=== PATIENT | male | born 1955 | race Caucasian/White ===

== ENCOUNTER 2022-10-27 06:38 | Emergency (ER) | payer MEDICARE, SELFPAY ==
[2022-10-27 06:46] VITALS: BP 145/87; PULSE 58; RESP 16; TEMP 36.7; O2SAT 96; BMI 29.2
--- NOTE | 2022-10-27 07:08 | CT_ITS ---
WS: [id number] CT HEAD NONCONTRAST HISTORY: new onset headache TECHNIQUE: Contiguous axial imaging performed through the brain in 2.5 mm imaging. Bone and soft tiss ue windows. Sagittal and coronal reformats reviewed. All CT scans at [facility] use at least one of these dose optimization techniques: automated exposure control; mA and/or kV adjustment per pa tient size (includes targeted exams where dose is matched to clinical indication); or iterative recon struction. DLP: 1120.03 mGy.cm COMPARISON: None available. Acute intracranial hemorrhage is identified. There is hemorrhage in the subdural and subarachnoid loc ations. There is a small amount of acute blood layering along the interhemispheric falx and over the tentorium. Subarachnoid blood is noted within the sylvian fissures and basal cisterns bilaterally but greatest on the LEFT. Blood is noted in the ambient and quadrigeminal cisterns. Blood also present i n the interpeduncular cistern. Acute blood noted in the region of the anterior communicating artery a nd basilar tip. No midline shift. No inferior displacement of the cerebellar tonsils. No loss of the gomez-white matte r. Ventricles: Temporal horns are very mildly prominent. No definite intraventricular hemorrhage. Quest ionable for small amount of hemorrhage in the occipital horn of the RIGHT lateral ventricle. Paranasal sinuses: As visualized are clear. Mastoid air cells: Well pneumatized. Calvarium and scalp: Skull is intact with no soft tissue edema or swelling. CT/CT head wo con* [id number] IMPRESSION: 1. Acute intracranial blood, subdural and subarachnoid locations. Suspect rupt ured aneurysm. 2. Diffuse intracranial hemorrhage but more focal in the region of the basilar cisterns, basilar artery tip, LEFT MCA. 3. Mildly prominent temporal horns suggesting early ventricular obstruction. Notified Gopal Langford DO at 10/27/2022 8:03 AM.
[2022-10-27] MEDS: ketorolac 30 mg/mL INJ IVP (07:28)
[2022-10-27] MEDS: promethazine 25 mg/mL SDV 1 mL IM (07:29)
[2022-10-27 07:52] LABS: Basophils % 0.5 %; Eosinophils % 0.1 %; Hematocrit 43.4 % (42.0-52.0); Hemoglobin 14.6 g/dL (11.7-16.6); Lymphocytes # 0.8 10^3/uL (0.8-4.8); Lymphocytes % 8.7 %; Mean Corpuscular HGB Conc 33.6 g/dL (30.0-36.0); Mean Corpuscular Hemoglobin 29.8 pg (28.0-34.0); Mean Corpuscular Volume 88.6 fl (80-94); Mean Platelet Volume 11.1 fL (7.4-10.4); Monocytes # 0.5 10^3/uL (0.2-0.9); Monocytes % 5.5 %; Neutrophils # 7.33 10^3/uL (1.8-7.7); Neutrophils % 85.1 %; Nucleated Red Blood Cells % 0 %; Platelet Count 256 10^3/cmm (130-400); Red Cell Distribution Width 13.1 % (12.1-15.1); White Blood Count 8.6 10^3/uL (4.0-10.0)
[2022-10-27 08:05] LABS: Alanine Aminotransferase 18 U/L (0-41); Albumin Level 4.4 g/dL (3.5-5.2); Alkaline Phosphatase 48 U/L (40-130); Blood Urea Nitrogen 19 mg/dL (8-23); Calcium 9.2 mg/dL (8.5-10.5); Carbon Dioxide 24 mmol/L (22-29); Chloride 101 mmol/L (98-107); Creatinine Clr Calc Pharmacy 102.0109; Glomerular Filtration Rate 113.2 mL/min (90-130); Glucose 123 mg/dL (65-115); Osmolality Calculated 286 mOsm/kg (285-295); Sodium 136 mmol/L (136-145); Total Bilirubin 0.7 mg/dL (0.15-1.2); Total Protein 7.4 g/dL (6.6-8.7)
[2022-10-27 08:08] LABS: Anion Gap 14.5 (5-19); Aspartate Amino Transferase 18 U/L (0-40); Potassium 3.5 mmol/L (3.5-5.1)
--- NOTE | 2022-10-27 08:08 | W.ED.HA ---
HPI - Headache General: Chief Complaint: Headache Stated Complaint: headache Time Seen by Provider: 10/27/22 06:39 Source: patient Mode of arrival: ambulatory History of Present Illness: 67-year-old male presents emergency room with headache for the last 2 days he was lifting some heavy objects suddenly had a sharp shooting pain in the back of his head radiating from the base of his skull up through the top as he describes it. He became very nauseous he is a headache since. He describes it is most profound headache he has ever had he has had some vision changes difficulty focusing and some difficulty with balance. He is tried various medications at home with no relief. MD elicited complaint: headache Onset (ago): day(s) (2) Onset description: suddenly Location: occipital and down into neck Severity: severe Quality & Timing: constant and worst headache of life Exacerbating factors: exertion Relieving factors: nothing Context: occurred with exertion/activity Associated symptoms: Reports lightheadedness, nausea, photophobia and vomiting; Deny chest pain, confusion, cough, diaphoresis, eye pain, eye redness, fever(s), loss of vision, malaise, neck stiffness, numbness, paresthesias, pre-syncope, rash, seizures, short of breath, sound sensitivity, syncope or weakness Treatments prior to arrival: acetaminophen and ibuprofen Review of Systems Const: Denies: fever(s), chills, fatigue, malaise or diaphoresis ENMT: Denies: throat pain, ear or mastoid pain, nasal discharge or nasal congestion Card: Reports: lightheadedness; Denies: chest pain, palpitations, irregular heart rhythm, syncope or pre-syncope Resp: Denies: dyspnea, productive cough or non-productive cough GI: Reports: nausea and vomiting; Denies: abdominal pain : Denies: flank pain, dysuria, urinary frequency or urinary urgency Musc: Reports: neck pain Skin/Breast: Denies: rash Neuro: Reports: headache(s); Denies: confusion Physical Exam Const: GENERAL APPEARANCE: cooperative and comfortable ORIENTATION/CONSCIOUSNESS: Yes awake, Yes oriented to person, Yes oriented to place and Yes oriented to time HENMT: COMMON NORMALS: normocephalic, atraumatic, hearing grossly normal bilaterally, external ears normal, EAC's normal, TM's normal bilaterally, Normal nasal mucous membranes and turbinates present, moist oral mucous membranes and oropharynx normal HEAD & SCALP: normocephalic and atraumatic NOSE: Normal nasal mucous membranes and turbinates present EXTERNAL EAR: Yes external ears normal EXTERNAL AUDITORY CANAL: EAC's normal TYMPANIC MEMBRANE: TM's normal bilaterally Eye: COMMON NORMALS: Equal, round and reactive pupils present, EOMs intact bilaterally, conjunctivae normal and no scleral icterus CONJUNCTIVA: Yes conjunctivae normal PUPIL: Yes Equal, round and reactive pupils present DIRECT OPHTHALMOSCOPY: Yes photophobia Neck/C-Spine: COMMON NORMALS: full ROM, no lymphadenopathy, supple and no JVD Resp: COMMON NORMALS: normal respiratory effort, No retractions, No use of accessory muscles and clear to auscultation bilaterally AUSCULTATION: clear to auscultation bilaterally Cardio: COMMON NORMALS: no JVD, regular rate, regular rhythm and No murmurs present (Cardio) RATE: regular rate RHYTHM: regular rhythm GI: COMMON NORMALS: Soft to palpation and No hepatosplenomegaly present AUSCULTATION: Yes normoactive bowel sounds PALPATION: Yes Soft to palpation, No Tenderness to palpation present (GI), No Guarding due to palpation present (GI) and Yes No hepatosplenomegaly present Extremity: COMMON NORMALS: normal to inspection, capillary refill normal, no clubbing, cyanosis or edema, no calf tenderness and no pedal edema Neuro: SENSORIUM/ORIENTATION: Yes oriented to person, Yes oriented to place and Yes oriented to time Skin: COMMON NORMALS: no rashes or lesions noted GENERAL SKIN EXAM: no rashes or lesions noted Course Vital Signs: Vital signs: Vital Signs Temperature 98.1 F 10/27/22 06:46 Pulse Rate 67 10/27/22 09:26 Respiratory Rate 18 10/27/22 09:26 Blood Pressure 127/72 10/27/22 10:02 Pulse Oximetry 97 10/27/22 09:26 Oxygen Delivery Me thod 10/27/22 09:26 MDM - Headache Medical Decision Making New subarachnoid hemorrhage. Strict blood pressure control with nicardipine. There is some blood in the ventricles no hydrocephalus as of yet. Patient require neurosurgical consultation. We will make arrangements for transfer to appropriate facility Neurosurgery excepted on ER to ER transfer to [facility] Medical Records I reviewed the patient's medical records. Lab Data I reviewed the patient's lab results. 10/27/22 07:20 10/27/22 07:[address] 10/27/22 07:08 IMPRESSION: 1. Acute intracranial blood, subdural and subarachnoid locations. Suspect ruptured aneurysm. 2. Diffuse intracranial hemorrhage but more focal in the region of the basilar cisterns, basilar artery tip, LEFT MCA. 3. Mildly prominent temporal horns suggesting early ventricular obstruction. Notified Gopal Langford DO at 10/27/2022 8:03 AM. Laboratory Results WBC 8.6 10^3/uL (4.0-10.0) 10/27/22 07:20 RBC 4.90 10^6/uL (4.1-5.3) 10/27/22 07:20 Hgb 14.6 g/dL (11.7-16.6) 10/27/22 07:20 Hct 43.4 % (42.0-52.0) 10/27/22 07:20 MCV 88.6 fl (80-94) 10/27/22 07:20 MCH 29.8 pg (28.0-34.0) 10/27/22 07:20 MCHC 33.6 g/dL (30.0-36.0) 10/27/22 07:20 RDW 13.1 % (12.1-15.1) 10/27/22 07:20 Plt Count 256 10^3/cmm (130-400) 10/27/22 07:20 MPV 11.1 fL (7.4-10.4) H 10/27/22 07:20 Neut % (Auto) 85.1 % 10/27/22 07:20 Lymph % (Auto) 8.7 % 10/27/22 07:20 Mower % (Auto) 5.5 % 10/27/22 07:20 Eos % (Auto) 0.1 % 10/27/22 07:20 Baso % (Auto) 0.5 % 10/27/22 07:20 Neut # (Auto) 7.33 10^3/uL (1.8-7.7) 10/27/22 07:20 Lymph # (Auto) 0.8 10^3/uL (0.8-4.8) 10/27/22 07:20 Mower # (Auto) 0.5 10^3/uL (0.2-0.9) 10/27/22 07:20 Eos # (Auto) 0.0 10^3/uL (0.0-0.8) 10/27/22 07:20 Baso # (Auto) 0.0 10^3/uL (0.0-0.1) 10/27/22 07:20 Nucleated RBC % (auto) 0 % 10/27/22 07:20 Nucleated RBCs # 0.0 /100WBC 10/27/22 07:20 Sodium 136 mmol/L (136-145) 10/27/22 07:20 Potassium 3.5 mmol/L (3.5-5.1) 10/27/22 07:20 Chloride 101 mmol/L (98-107) 10/27/22 07:20 Carbon Dioxide 24 mmol/L (22-29) 10/27/22 07:20 Anion Gap 14.5 (5-19) 10/27/22 07:20 BUN 19 mg/dL (8-23) 10/27/22 07:20 Creatinine 0.7 mg/dL (0.7-1.2) 10/27/22 07:20 GFR Calculation 113.2 mL/min (90-130) 10/27/22 07:20 Glucose 123 mg/dL (65-115) H 10/27/22 07:20 Calculated Osmolality 286 mOsm/kg (285-295) 10/27/22 07:20 Calcium 9.2 mg/dL (8.5-10.5) 10/27/22 07:20 Total Bilirubin 0.7 mg/dL (0.15-1.2) 10/27/22 07:20 AST 18 U/L (0-40) 10/27/22 07:20 ALT 18 U/L (0-41) 10/27/22 07:20 Alkaline Phosphatase 48 U/L (40-130) 10/27/22 07:20 Total Protein 7.4 g/dL (6.6-8.7) 10/27/22 07:20 Albumin 4.4 g/dL (3.5-5.2) 10/27/22 07:20 Globulin 3.0 g/dL (1.3-4.6) 10/27/22 07:20 Discharge Plan Discharge Patient Disposition: Transfer to ED Clinical Impression: Subarachnoid hemorrhage Condition: Stable Prescriptions: No Action Celebrex 200 mg Capsule 200 mg PO BID PRN (Reason: Pain) amlodipine 5 mg Tablet 5 mg PO DAILY Tylenol Extended Release 650 mg Tablet Extended Release 650 mg PO Q8H PRN (Reason: Pain) oxycodone-acetaminophen 5-325 mg tablet 1 tab PO Q6H PRN (Reason: Pain) valsartan-hydrochlorothiazide 320-25 mg Tablet 1 tab PO DAILY Referrals: Estela Orr FNP [Primary Care Provider] - Coding Level of Care Code ED [place] for Chg Fwd Exam Comprehensive
[2022-10-27] MEDS: nicardipine 20 MG/200 ML PREMIX 50 MG IV (08:28)
[2022-10-27 08:29] VITALS: BP 143/100; PULSE 56; RESP 18; O2SAT 99
[2022-10-27 09:09] VITALS: BP 139/91
[2022-10-27 09:26] VITALS: BP 135/65; PULSE 67; RESP 18; O2SAT 97
[2022-10-27 09:48] VITALS: BP 127/72
[2022-10-27 10:02] VITALS: BP 127/72
== END 2022-10-27 10:03 ==
PROVIDERS: Emergency Provider Family Medicine; PCP Nurse Practitioner Family
DX: I60.9 Nontraumatic subarachnoid hemorrhage, unspecified (principal)
CPT/HCPCS: 70450; 80053; 85025; 96365; 96372; 96375; 99285; J1885; J2550

== ENCOUNTER → 2023-04-07 11:36 | Outpatient (BNVA) | payer MEDICARE, SELFPAY | PROVIDERS: PCP Family Medicine; Visit Provider Family Medicine | DX: Z12.5 Encounter for screening for malignant neoplasm of prostate (principal); I10 Essential (primary) hypertension; Z13.220 Encounter for screening for lipoid disorders | CPT/HCPCS: 80053; 80061; 85025; G0103 ==

== ENCOUNTER → 2024-04-11 16:00 | Outpatient (BNVA) | payer MEDICARE, SELFPAY | PROVIDERS: PCP Family Medicine; Visit Provider Family Medicine | DX: I10 Essential (primary) hypertension (principal); E78.5 Hyperlipidemia, unspecified; Z12.5 Encounter for screening for malignant neoplasm of prostate; M54.9 Dorsalgia, unspecified | CPT/HCPCS: 80053; 80061; 84443; 85025; G0103 ==

== ENCOUNTER → 2024-04-30 08:25 | Outpatient (BNVA) | payer MEDICARE, SELFPAY | PROVIDERS: PCP Family Medicine; Visit Provider Family Medicine | DX: E78.5 Hyperlipidemia, unspecified (principal) | CPT/HCPCS: 80061 ==